=== PATIENT | female | born 1960 | race Caucasian/White ===

== ENCOUNTER → 2016-11-24 | Outpatient (CLI) | payer OTHER ==
[~2016-11-24] MED LIST: CIPRO 500MG TA500 MG PO; DULCOLAX 5MG TAB5 MG PO; FLAGYL500 MG PO; GEMFIBROZIL600 MG PO; LEVOTHYROXINE0.05 M3 NG; LISINOPRIL HCTZ1 TAB PO; LISINOPRIL10 MG PO; MACROBID 100MG100 MG PO; Metformin HCl500 MG PO; NEXIUM40 MG PO; NORCO 325 MG-51 TAB PO; PANTOPRAZOLE SO40 M1 PO; PERCOCET 5/3251 EACH PO; POTASSIUM CHLO10 ME1 PO; PROTONIX 40MG T40 MG PO; SKELAXIN 800MG800 MG PO; VITAMIN D1000 IU PO
--- NOTE | 2016-11-28 13:13 | RADIOLOGY REPORT PS360 ---
CT SOFT TISSUE NECK W/O CONT Ordering Physician: Girish Turner MD Patient Age: 55 years: Femal HISTORY: SOFT TISSUE MASS Soft tissue mass at the posterior neck for 2 years TECHNIQUE: Helical CT scanning performed through the cervical spine with sagittal and coronal reconstructions on CT workstation. COMPARISON is made to previous ultrasound neck 11/16/2016 FINDINGS There is a bulging area at the posterior aspect of the mid neck. This is nicely seen by CT and all 3 planes. Is seen on coronal image 38 there appear to be to be elongated a prominent lipoma mass which sandwiches, or more likely wraps about the muscle group at right neck which passes through its central portion of this lipoma. This latter feature is best seen on the coronal image 39, 38. Overall this lipoma spans up to nearly 4.5 cm transverse x 6.5 cm length x 2.5 cm AP. It it begins at midline and extends to the right it involves posterior right right paraspinal muscles of the posterior neck.. The underlying bones appear intact.. C-spine spinous processes and posterior elements intact. There are some unrelated features at the C-spine: for example at note a enlarged fused hypertrophic C4/5 facet on left;. A right aspect C-spine there are prominent degenerative facet features on right at C3/4 & to lesser degree C5-C6 . The neck otherwise demonstrates scattered small nodes throughout the neck. No contrast was utilized. IMPRESSION: 1. 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 Degenerative facet changes at C-spine as noted above in body of report
== END ==
LOC: RAD 14:25
DX: M79.9 Soft tissue disorder, unspecified (principal)

== ENCOUNTER 2017-04-09 08:52 | Day surgery (SDC) | payer OTHER ==
[~2017-04-09 08:52] MED LIST changes: +BISOPROLOL 5MG T5 MG PO; +CETIRIZINE HCL10 MG PO; +CRESTOR10 MG PO; -LEVOTHYROXINE0.05 M3 NG; +LEVOTHYROXINE0.05 M3 PO; +LISINOPRIL 20MG20 MG PO; +OMEPRAZOLE40 MG PO; +SERTRALINE 50MG50 MG PO; +SINGULAIR10 MG PO
--- NOTE | 2017-04-09 10:44 | Operative Note ---
Colonoscopy (Surinder) Procedure date: 04/09/17 Date of : 60 Procedure:Colonoscopy Colonoscopy Indications: Mrs. Hung is a 56-year-old female who is here for follow-up screening/ surveillance colonoscopy. The patient does have frequent diarrhea and previously had C. difficile colitis. The patient also reports some bloating, gassiness and epigastric abdominal soreness with dyspepsia. She has had some intermittent hemorrhoidal bleeding and prolapse. She does state that her maternal aunt had colon cancer at the age of 46 and her sister had colon polyps. She had undergone cholecystectomy nearly 30 years ago. The patient did have a colonoscopy in December [address] Bang Canela M.D. and did have diverticulosis but no polyps. It was at that time she had the C. difficile colitis. The patient does state that she also has a family history of Crohn's disease. Performing Provider: Dae Cadena MD Referrring Provider: Girish Turner M.D. Sedation: Fentanyl 200 mg IV/Versed 12 mg IV Procedure: Prior to the procedure, a history and physical exam was performed, and patient medications and allergies were reviewed. The risks and benefits of the procedure and the sedation options and risks were discussed with the patient. All questions were answered and informed consent was obtained. Patient identification and proposed procedure were verified by the physician and the nurse. The patient was placed in a left lateral decubitus position. Throughout the procedure, the patient's blood pressure, pulse, and oxygen saturations were monitored continuously. Findings: On digital rectal examination there was normal rectal tone. There were no external hemorrhoids. The colonoscope was introduced through the anal canal to the rectum and advanced to the cecum. The ileocecal valve and appendiceal orifice were identified. The scope was advanced a short distance into the ileum which appeared grossly normal. The scope was then withdrawn into the colon. The cecum, ascending and transverse colon and mucosa were grossly normal. There were scattered diverticuli throughout the descending and sigmoid colon (LEFT colon). The rectum itself was normal. Upon retroflexion within the rectum there were grade 1 internal hemorrhoids. Impressions: 1. Left-sided diverticulosis 2. Grade 1 internal hemorrhoids Recommendations: Given her family history, I would continue surveillance at a five-year interval. I do feel that she has some cholerheic diarrhea and IBS. I would recommend FiberCon 2 tablets by mouth every morning and WelChol by mouth daily at bedtime (as a bile acid binding resin). We will discuss additional dietary measures and treatment of her dyspepsia. Complications: None EBL (ml): 0 at 1043
[2017-04-09 15:51] VITALS: BP 105/67
== END 2017-04-09 11:37 | disposition home or self-care (01) ==
LOC: SDC 08:52
PROVIDERS: Internal Medicine Gastroenterology
PROC: 0DJD8ZZ Inspection of Lower Intestinal Tract, Via Natural or Artificial Opening Endoscopic (ICD-10-PCS; principal; 2017-04-09 10:00)
DX: Z12.11 Encounter for screening for malignant neoplasm of colon (principal); Z83.71 Family history of colonic polyps; K57.30 Diverticulosis of large intestine without perforation or abscess without bleeding; K64.0 First degree hemorrhoids

== ENCOUNTER 2017-04-10 13:33 | Day surgery (SDC) | payer OTHER ==
[~2017-04-10] VITALS: Ht 152.4 cm; Wt 68.0 kg
[2017-04-10 13:59] VITALS: BP 146/62
[2017-04-10 14:21] VITALS: BP 146/62
[2017-04-10 14:23] VITALS: BP 161/96
--- NOTE | 2017-04-10 14:33 | Procedure Note ---
Procedure detail Date of procedure: 04/10/17 Anesthesiologist: Eamon Gonzales Complications: None Pre-procedure diagnosis: Degenerative disease lumbar spine multiple levels. Lumbar radiculopathy symptoms. Post-procedure diagnosis: Same Indications for procedure: Very pleasant 56 or white female that comes our procedure clinic today for her initial lumbar epidural steroid injection L4-5 level. Patient describes her low back pain as constant, dull, aching. She rates pain 7/10. Procedure detail: Procedure: Lumbar epidural steroid injection under fluoroscopy Informed consent was obtained and the risks and benefits of the procedure were explained to the patient. The patient was taken to the procedure room and noninvasive monitors placed, including noninvasive blood pressure cuff and pulse oximeter. The back was viewed using C-arm Fluoroscopy and prepped using Betadine as a cleansing solution and the L4-L5 interspace was palpated. Skin and subcutaneous tissues were anesthetized using lidocaine 1.5% and a 25-gauge needle. After this, an 18-gauge Touhy epidural needle was placed into the L4-L5 interspace and advanced using fluoroscopic guidance and loss of resistance to air until the epidural space was encountered. After confirmation of needle placement in the epidural space, with dye, a solution containing lidocaine 1.5%, 4 mL and Depo-Medrol 80 mg were incrementally injected into the lumbar epidural space. The patient tolerated the procedure well with no complications. The patient was observed in the Pain Clinic and then discharged home neurologically intact. Plan and disposition: Patient reevaluated 10 minutes post procedure. She is doing very well. [facility] pain clinic for further evaluation. at [id number]
[2017-04-10 14:35] VITALS: BP 148/84
== END 2017-04-10 14:35 | disposition home or self-care (01) ==
LOC: PM 13:33
PROC: 3E0R33Z Introduction of Anti-inflammatory into Spinal Canal, Percutaneous Approach (ICD-10-PCS; principal; 2017-04-10)
PROC: 3E0R3BZ Introduction of Anesthetic Agent into Spinal Canal, Percutaneous Approach (ICD-10-PCS; 2017-04-10)
PROC: B01B1ZZ Fluoroscopy of Spinal Cord using Low Osmolar Contrast (ICD-10-PCS; 2017-04-10)
DX: M51.16 Intervertebral disc disorders with radiculopathy, lumbar region (principal)
CPT/HCPCS: J1040; Q9966

== ENCOUNTER 2017-04-16 07:27 | Day surgery (SDC) | payer OTHER ==
--- NOTE | 2017-04-16 08:33 | Operative Note ---
Upper GI Endoscopy Procedure date: 04/16/17 Date of : 60 Procedure:Upper GI Endoscopy Esophagogastroduodenoscopy with cold biopsies and TTS balloon dilation Indications: Mrs. Hung is a 56-year-old female who has had IBS and dyspepsia. She reports mid upper abdominal soreness, bloating and marked belching. She is epigastric pain, nausea and early satiety. She also reports globus sensation with some choking. She reports no chest pain. She has no heartburn or reflux which is well controlled with omeprazole twice a day. She did have a colonoscopy on April 09, 2017 showing left-sided diverticulosis. Performing Provider: Dae Cadena MD Referring Provider: Girish Turner M.D. Sedation: Fentanyl 200 mg IV/Versed 11 mg IV Procedure: Prior to the procedure, a history and physical exam was performed, and patients medications and allergies were reviewed. The risks and benefits of the procedure and the sedation options and risks were discussed with the patient. All questions were answered and informed consent was obtained. The patient was brought to the procedure room. Patient identification and proposed procedure were verified by the physician and the nurse. The patient was placed in a left lateral decubitus position and the scope was passed under direct vision. Throughout the procedure, the patient's blood pressure, pulse, and oxygen saturations were monitored continuously. The endoscope was introduced through the mouth, and advanced to the second part of duodenum. The upper GI endoscopy was accomplished without difficulty. The patient tolerated the procedure well. Findings: The scope was passed directly into the upper esophagus and advanced to the third portion of the duodenum. The post bulbar duodenum and duodenal bulb were normal with normal mucosa and conniventes. The scope was withdrawn through a normal duodenal bulb and pylorus into the stomach. There was linear erythema of the antrum and body with bile reflux consistent with linear reactive gastritis. The remainder of the antrum, body and fundus of the stomach were grossly normal. Upon retroflexion there was a 2 cm small sliding hiatal hernia. 2 biopsies were taken in the antrum and along the lesser curvature for histology. The scope was then withdrawn into the esophagus. There were tertiary contractions and mild esophageal dysmotility. There was nonerosive gastroesophageal reflux disease. The entire esophagus was dilated to 60 Indonesian/20 mm with a TTS hydrostatic balloon. There was some resistance at the cricopharyngeus/UES (upper esophageal sphincter). The remainder of the esophageal mucosa was normal. Immediate complications: None EBL (ml): 0 Impression: 1. Cricopharyngeal (UESupper esophageal sphincter) spasm status post dilation to 20 mm 2. Nonerosive gastroesophageal reflux disease with mild esophageal dysmotility and small 2 cm sliding hiatal hernia 3. Bile reflux with mild linear reactive gastritis Recommendations: I will follow-up the biopsies. I do feel the patient has functional dyspepsia and functional gastroesophageal reflux disease. I would encourage continuation of the bulking fiber supplement FiberCon and probiotic (align). I am also going to add promotility therapy and treatment for visceral sensitivity. at 0832
[2017-04-16 16:08] VITALS: BP 156/86
== END 2017-04-16 09:41 | disposition home or self-care (01) ==
LOC: SDC 07:27
PROVIDERS: Internal Medicine Gastroenterology
PROC: 0D758ZZ Dilation of Esophagus, Via Natural or Artificial Opening Endoscopic (ICD-10-PCS; 2017-04-16)
PROC: 0DB68ZX Excision of Stomach, Via Natural or Artificial Opening Endoscopic, Diagnostic (ICD-10-PCS; principal; 2017-04-16 08:30)
DX: J39.2 Other diseases of pharynx (principal); K21.9 Gastro-esophageal reflux disease without esophagitis; K44.9 Diaphragmatic hernia without obstruction or gangrene; K22.4 Dyskinesia of esophagus; K29.60 Other gastritis without bleeding
CPT/HCPCS: C1726